=== PATIENT | female | born 1980 | race Caucasian/White ===

== ENCOUNTER 2017-07-02 10:58 | Observation (INO) | payer OTHER ==
[2017-07-02 11:48] LABS: BASOPHIL 0.2 % (0-2.0); EOSINOPHIL 0.3 % (0-4.5); MCH 27.7 pg (25.7-33.7); MCHC 33.4 g/dl (32.0-36.0); MEAN CELL VOLUME 83.1 fl (80-96); MEAN PLT VOLUME 9.7 fl (7.5-11.1); NEUTROPHILS 60.1 % (42.8-82.8); PLATELET COUNT 389 K/MM3 (134-434); RDW 12.6 % (11.6-15.6); WHITE BLOOD COUNT 13.3 K/mm3 (4.0-10.8)
[2017-07-02 11:49] LABS: PH,URINE 5.5 (4.5-8); URINE BILIRUBIN Negative (NEGATIVE); URINE BLOOD 3+ (NEGATIVE); URINE COLOR YELLOW; URINE GLUCOSE (UA) 3+ (NEGATIVE); URINE KETONE Negative (NEGATIVE); URINE LEUK ESTERASE 3+ (NEGATIVE); URINE NITRITE Negative (NEGATIVE); URINE PROTEIN Negative (NEGATIVE); URINE UROBILINOGEN 0.2 (0.2-1.0)
[2017-07-02 11:50] LABS: URINE APPEARANCE CLOUDY
[2017-07-02 12:05] LABS: URINE RBC 20-50 /hpf (0-3); URINE WBC 80-100 (3-5)
[2017-07-02 12:08] LABS: ALBUMIN 3.1 g/dl (3.5-5.0); ALK PHOS 84 U/L (32-92); ANION GAP 13 (8-16); BILIRUBIN,TOTAL 0.7 mg/dl (0.2-1.0); CALCIUM 9.5 mg/dl (8.4-10.2); CO2 20 mmol/L (22-28); CREATININE 0.9 mg/dl (0.6-1.3); SGOT/AST 16 U/L (10-42); SGPT/ALT 16 U/L (10-40); TOT PROT 7.9 g/dl (6.4-8.3)
[2017-07-02 12:10] LABS: GLUCOSE,RANDOM 450 mg/dl (74-106)
[2017-07-02] MEDS ORDERED: valACYclovir HCL 500 MG TABLET (FP) PO ONE (12:15)
--- NOTE | 2017-07-02 12:27 | PDOC ---
History of Present Illness - General Chief Complaint: Rash Stated Complaint: rash Time Seen by Provider: 07/02/17 11:39 - History of Present Illness Initial Comments: 07/02/17 12:22 37 F with h/o DM2 on metformin presents to ER with complaint of rash to her vagina. Pt states that it began several days ago. She was seen at another ER last week and told she had a yeast infection. She was started on fluconazole and DC'ed. However, since then, the rash has only gotten worse. She reports severe pain around her vagina, with clearish discharge. Pt states she has had yeast infections in the past but this does not feel the same. She denies F/C. Has had chlamydia in the past but no other known STDs. Denies any dysuria. Pt also states that she has been noncompliant with her metformin for several days because she left it at home and is visiting her father. SHe denies any CP/ SOB. Denies N/V/D/abdominal pain. Has not been checking her sugars regularly. Denies urinary frequency but endorses thirst for the past few days. Past History - Past Medical History Allergies/Adverse Reactions: Allergies Allergy/AdvReac Type Severity Reaction Status Date / Time No Known Allergies Allergy Verified 07/02/17 11:03 Home Medications: Ambulatory Orders Metformin HCl [Glucophage -] 500 mg PO DAILY 07/02/17 Diabetes: Yes - Suicide/Smoking/Psychosocial Hx Smoking History: Never smoked Hx Alcohol Use: Yes Drug/Substance Use Hx: No Substance Use Type: Alcohol Review of Systems - Review of Systems Comments:: 07/02/17 12:25 "GENERAL/CONSTITUTIONAL: No fever or chills. No weakness. HEAD, EYES, EARS, NOSE AND THROAT: No change in vision. No ear pain or discharge. No sore throat. CARDIOVASCULAR: No chest pain or shortness of breath. RESPIRATORY: No cough, wheezing, or hemoptysis. GASTROINTESTINAL: No nausea, vomiting, diarrhea or constipation. GENITOURINARY: +rash with discharge, No dysuria, frequency, or change in urination. MUSCULOSKELETAL: No joint or muscle swelling or pain. No neck or back pain. SKIN: No rash NEUROLOGIC: No headache, vertigo, loss of consciousness, or change in strength/ sensation. ENDOCRINE: No increased thirst. No abnormal weight change. HEMATOLOGIC/LYMPHATIC: No anemia, easy bleeding, or history of blood clots. ALLERGIC/IMMUNOLOGIC: No hives or skin allergy. " *Physical Exam - Vital Signs Last Vital Signs Temp Pulse Resp BP Pulse Ox 97 F L 106 H 16 111/72 100 07/02/17 10:59 07/02/17 11:48 07/02/17 10:59 07/02/17 11:48 07/02/17 10:59 - Physical Exam Comments: 07/02/17 12:25 "GENERAL: Awake, alert, and fully oriented, in no acute distress HEAD: No signs of trauma EYES: PERRLA, EOMI, sclera anicteric, conjunctiva clear ENT: Auricles normal inspection, hearing grossly normal, nares patent, oropharynx clear without exudates. Moist mucosa NECK: Nontender, no stepoffs, Normal ROM, supple, no lymphadenopathy, JVD, or masses LUNGS: Breath sounds equal, clear to auscultation bilaterally. No wheezes, and no crackles HEART: Regular rate and rhythm, normal S1 and S2, no murmurs, rubs or gallops ABDOMEN: Soft, nontender, normoactive bowel sounds. No guarding, no rebound. No masses : + Vesicular rash with clear discharge surrounding vagina, no purulence, + erythema EXTREMITIES: Normal range of motion, no edema. No clubbing or cyanosis. No cords, erythema, or tenderness NEUROLOGICAL: Cranial nerves II through XII intact. 5/5 strength and sensation in all extremities, Normal speech, normal gait SKIN: Warm, Dry, normal turgor, no rashes or lesions noted. " ED Treatment Course - LABORATORY CBC & Chemistry Diagram: 07/02/17 11:33 07/02/17 11:33 - ADDITIONAL ORDERS Additional order review: Laboratory Results 07/02/17 07/02/17 11:33 11:33 Sodium 131 L Potassium 4.0 Chloride 98 Carbon Dioxide 20 L Anion Gap 13 BUN 17 Creatinine 0.9 Creat Clearance w eGFR > 60 Random Glucose 450 H* Calcium 9.5 Total Bilirubin 0.7 AST 16 ALT 16 Alkaline Phosphatase 84 Total Protein 7.9 Albumin 3.1 L Urine Color Yellow Urine Appearance Cloudy Urine pH 5.5 Ur Specific [place] <= 1.005 Urine Protein Negative Urine Glucose (UA) 3+ H Urine Ketones Negative Urine Blood 3+ H Urine Nitrite Negative Urine Bilirubin Negative Urine Urobilinogen 0.2 Urine RBC 20-50 Urine WBC 80-100 Ur Epithelial Cells 3-5 07/02/17 11:33 RBC 5.00 MCV 83.1 MCHC 33.4 RDW 12.6 MPV 9.7 Neutrophils % 60.1 Lymphocytes % 30.1 Monocytes % 9.3 Eosinophils % 0.3 Basophils % 0.2 - RADIOLOGY Radiology Studies Ordered: Category Date Time Status CHEST X-RAY PORTABLE* [RAD] Stat Radiology 07/02/17 11:57 Ordered Medical Decision Making - Medical Decision Making 07/02/17 12:29 37 F with h/o DM presenting with rash to vagina, incidentally found to have fingerstick >400. Pt likely has genital herpes given painful vesicular rash with clear discharge. However, pt is at risk for GC/chlamydia as well given prior h/o STD. Regarding pt's elevated fingerstick, will evaluate for DKA and HHS. Pt will likely need to be started on insulin regimen. - Labs, UA, GC/CT, HSV cultures - Acetone, VBG to r/o DKA - Acyclovir for HSV infection - Ceftriaxone and Doxy for GC/CT coverage 07/02/17 14:31 Labs with only trace serum ketones, Anion Gap 13. Pt given insulin 5u IV, with 2L NS. Will admit for further management of diabetes and for tx of genital infection. Case discussed in detail with admitting physician including history, physical exam and ancillary studies. Admitting physician has assumed care for the patient and will follow all pending diagnostics and complete the evaluation and treatment. *DC/Admit/Observation/Transfer Diagnosis at time of Disposition: Hyperglycemia, Genital herpes simplex - Discharge Dispostion Condition at time of disposition: Stable Admit: Yes
[2017-07-02] MEDS ORDERED: DOXYCYCLINE HYCLATE 100 MG CAPSULE PO ONE ×2 (12:28→12:46)
[2017-07-02] MEDS ORDERED: valACYclovir HCL 500 MG TABLET (FP) ONE (12:46)
[2017-07-02 13:25] LABS: VENOUS BLOOD GAS HCO3 22.4 meq/L (22-26)
[2017-07-02 13:26] LABS: VENOUS PH 7.37 (7.35-7.45)
[2017-07-02] MEDS ORDERED: INSULIN REGULAR HUMAN 100 UNITS/ML *VIAL IVPUSH ONE (13:34)
[2017-07-02] MEDS ORDERED: POTASSIUM CHLORIDE TABS 20 MEQ TABLET.ER (FP) PO ONE ×2 (13:34→13:44)
[2017-07-02] MEDS ORDERED: SODIUM CHLORIDE 1,000 ML IV STA ×2 (13:34→15:02)
[2017-07-02] MEDS ORDERED: INSULIN REGULAR HUMAN 100 UNITS/ML *VIAL ONE (13:45)
[2017-07-02 13:59] LABS: HIV 1 & 2 AB NEGATIVE; HIV 1 AGp24 NEGATIVE
[2017-07-02] MEDS ORDERED: HEMOQUE TEST 1 EACH EACH ONE (14:32)
[2017-07-02] MEDS ORDERED: SODIUM CHLORIDE 1,000 ML with POTASSIUM CHLORIDE 20 MEQ IVPB STA (14:37)
[2017-07-02] MEDS ORDERED: MAGNESIUM SULF 50% (8.12 MEQ/2 ML-1 GM VIAL) IVPB ONE (15:15)
[2017-07-02 16:12] LABS: ALK PHOS 82 U/L (32-92); ANION GAP 12 (8-16); BILIRUBIN,TOTAL 0.6 mg/dl (0.2-1.0); CALCIUM 9.3 mg/dl (8.4-10.2); CO2 22 mmol/L (22-28); CREATININE 0.7 mg/dl (0.6-1.3); GLUCOSE,RANDOM 242 mg/dl (74-106); SGOT/AST 17 U/L (10-42); SGPT/ALT 17 U/L (10-40); TOT PROT 7.7 g/dl (6.4-8.3)
[2017-07-02] MEDS ORDERED: INSULIN SLIDING SCALE (NOVOLOG) 1 VIAL SQ SCH (17:00)
[2017-07-02] MEDS ORDERED: oxyCODONE HCL 5 MG TABLET PO ONE (17:01)
[2017-07-02 18:22] VITALS: BMI 36.3
[2017-07-02 20:12] LABS: ANION GAP 8 (8-16); CALCIUM 8.5 mg/dl (8.4-10.2); CO2 23 mmol/L (22-28); CREATININE 0.6 mg/dl (0.6-1.3); GLUCOSE,RANDOM 284 mg/dl (74-106)
[2017-07-03] MEDS: INSULIN SLIDING SCALE (NOVOLOG) 1 VIAL SQ SCH ×6 (02:00→22:00)
--- NOTE | 2017-07-03 07:11 | HP ---
CHIEF COMPLAINT: vaginal rash PCP: Dr Mccain (formerly [facility]) HISTORY OF PRESENT ILLNESS: patient is a 37 y/o female with a past medical history of NIDDM. She reports non compliance with prescribed medication. Patient reports a burning and itching sensation to her vagina since Sunday, . She was evaluated in a emergency department at [place], [place] and was given 1 dose of diflucan and started on monistat 7. Patient reports compliance with monistat, however, the burning rash to the vagina worsened and she sought evaluation in the emergency department. Patient does report she is sexually active with 1 male partner for the past 2 months. ER course was notable for: (1) wbc 13.3 (2) serum glucose 450 (3) Recent Travel: none PAST MEDICAL HISTORY: niddm PAST SURGICAL HISTORY: none Social History: employed at a [employer] agency Smoking: none Alcohol:none Drugs: none Family History: non contributory to this admission Allergies No Known Allergies Allergy (Verified 07/02/17 11:03) HOME MEDICATIONS: Home Medications Medication Instructions Recorded Metformin HCl [Glucophage -] 500 mg PO DAILY 07/02/17 REVIEW OF SYSTEMS CONSTITUTIONAL: Absent: fever, chills, diaphoresis, generalized weakness, malaise, loss of appetite, weight change HEENT: Absent: rhinorrhea, nasal congestion, throat pain, throat swelling, difficulty swallowing, mouth swelling, ear pain, eye pain, visual changes CARDIOVASCULAR: Absent: chest pain, syncope, palpitations, irregular heart rate, lightheadedness , peripheral edema RESPIRATORY: Absent: cough, shortness of breath, dyspnea with exertion, orthopnea, wheezing, stridor, hemoptysis GASTROINTESTINAL: Absent: abdominal pain, abdominal distension, nausea, vomiting, diarrhea, constipation, melena, hematochezia GENITOURINARY: present: genital pain Absent: dysuria, frequency, urgency, hesitancy, hematuria, flank pain MUSCULOSKELETAL: Absent: myalgia, arthralgia, joint swelling, back pain, neck pain SKIN: Absent: rash, itching, pallor HEMATOLOGIC/IMMUNOLOGIC: Absent: easy bleeding, easy bruising, lymphadenopathy, frequent infections ENDOCRINE: Absent: unexplained weight gain, unexplained weight loss, heat intolerance, cold intolerance NEUROLOGIC: Absent: headache, focal weakness or paresthesias, dizziness, unsteady gait, seizure, mental status changes, bladder or bowel incontinence PSYCHIATRIC: Absent: anxiety, depression, suicidal or homicidal ideation, hallucinations. PHYSICAL EXAMINATION Vital Signs - 24 hr 07/02/17 07/02/17 07/02/17 15:50 17:16 21:33 Temperature 99.5 F 98.5 F 99.4 F Pulse Rate 92 H 98 H Pulse Rate [ 99 H Left] Respiratory 18 18 18 Rate Blood Pressure 114/82 111/64 Blood Pressure 129/93 [Left Arm] O2 Sat by Pulse 99 98 96 Oximetry (%) 07/03/17 07/03/17 01:33 06:00 Temperature 98.0 F Pulse Rate 91 H Pulse Rate [ Left] Respiratory 18 18 Rate Blood Pressure 137/82 Blood Pressure [Left Arm] O2 Sat by Pulse 96 97 Oximetry (%) GENERAL: Awake, alert, and fully oriented, in no acute distress. HEAD: Normal with no signs of trauma. EYES: Pupils equal, round and reactive to light, extraocular movements intact, sclera anicteric, conjunctiva clear. No lid lag. EARS, NOSE, THROAT: Ears normal, nares patent, oropharynx clear without exudates. Moist mucous membranes. NECK: Normal range of motion, supple without lymphadenopathy, JVD, or masses. LUNGS: Breath sounds equal, clear to auscultation bilaterally. No wheezes, and no crackles. No accessory muscle use. HEART: Regular rate and rhythm, normal S1 and S2 without murmur, rub or gallop. ABDOMEN: Soft, nontender, not distended, normoactive bowel sounds, no guarding, no rebound, no masses. No hepatomegaly or splenomegaly. : vesicular rash with clear discharge to labia majora bilaterally MUSCULOSKELETAL: Normal range of motion at all joints. No bony deformities or tenderness. No CVA tenderness. UPPER EXTREMITIES: 2+ pulses, warm, well-perfused. No cyanosis. No clubbing. No peripheral edema. RIGHT HAND: abscess to nail bed, no lymphangitis LOWER EXTREMITIES: 2+ pulses, warm, well-perfused. No calf tenderness. No peripheral edema. NEUROLOGICAL: Cranial nerves II-XII intact. Normal speech. Normal gait. PSYCHIATRIC: Cooperative. Good eye contact. Appropriate mood and affect. SKIN: Warm, dry, normal turgor, no rashes or lesions noted, normal capillary refill. Laboratory Results - last 24 hr 09/25/17 09/25/17 09/25/17 16:51 19:30 21:43 Sodium 135 L Potassium 3.9 Chloride 104 Carbon Dioxide 23 Anion Gap 8 BUN 14 Creatinine 0.6 POC Glucometer 255 262 Random Glucose 284 H Calcium 8.5 07/03/17 07/03/17 01:47 06:21 Sodium Potassium Chloride Carbon Dioxide Anion Gap BUN Creatinine POC Glucometer 241 203 Random Glucose Calcium ASSESSMENT/PLAN: F/E/N - diabetec diet - replete lytes prn ppx - oob - pepcid - scd dispo: requires observation admission Problem List - Problem (1) Genital herpes Assessment/Plan: - pending vaginal herpes culture, physical exam consistent with herpes simplex II, will start valtrex 1 gm BID - pt has a past medical history of chlaymdia in the past, patient was empirically treated with rocephin and doxy in the ED, pending chlaymdia and gonnorhea culture - HIV oraquick negative Code(s): A60.00 - HERPESVIRAL INFECTION OF UROGENITAL SYSTEM, UNSPECIFIED Qualifiers: Herpes simplex infection site: vulvovaginitis Qualified Code(s): A60.04 - Herpesviral vulvovaginitis (2) Hyperglycemia Assessment/Plan: - start fingersticks achs with regular insulin coverage Code(s): R73.9 - HYPERGLYCEMIA, UNSPECIFIED (3) Diabetes Assessment/Plan: - pending hemoglobin a1c - continue fingersticks achs with regular insulin coverage Code(s): E11.9 - TYPE 2 DIABETES MELLITUS WITHOUT COMPLICATIONS (4) Paronychia of right middle finger Assessment/Plan: - incision and drainage completed, start bactroban and keflex Code(s): L03.011 - CELLULITIS OF RIGHT FINGER Visit type - Emergency Visit Emergency Visit: Yes ED Registration Date: 07/02/17 Care time: The patient presented to the Emergency Department on the above date and was hospitalized for further evaluation of their emergent condition. - New Patient This patient is new to me today: Yes Date on this admission: 07/03/17 - Critical Care Critical Care patient: No
[2017-07-03 07:50] LABS: BASOPHIL 0.8 % (0-2.0); EOSINOPHIL 0.8 % (0-4.5); MCH 27.5 pg (25.7-33.7); MCHC 33.1 g/dl (32.0-36.0); MEAN CELL VOLUME 82.9 fl (80-96); MEAN PLT VOLUME 8.5 fl (7.5-11.1); NEUTROPHILS 60.9 % (42.8-82.8); PLATELET COUNT 302 K/MM3 (134-434); RDW 12.5 % (11.6-15.6); WHITE BLOOD COUNT 11.3 K/mm3 (4.0-10.8)
[2017-07-03] MEDS: MUPIROCIN 2% TOPICAL OINTMENT 22 GM TUBE TP SCH ×3 (09:27→21:34)
[2017-07-03] MEDS: FAMOTIDINE 20 MG TABLET PO SCH ×2 (09:28→21:34)
[2017-07-03] MEDS: valACYclovir HCL 500 MG TABLET (FP) PO SCH ×2 (09:28→21:34)
[2017-07-03] MEDS ORDERED: valACYclovir HCL 1000 MG TABLET PO SCH (10:00)
[2017-07-03] MEDS ORDERED: INSULIN (NOVOLOG) ASPART 100 UNITS/ML 10ML VIAL ONE ×3 (12:32→21:45)
[2017-07-03 13:34] LABS: ANION GAP 5 (8-16); CALCIUM 8.3 mg/dl (8.4-10.2); CO2 23 mmol/L (22-28); CREATININE 0.6 mg/dl (0.6-1.3); GLUCOSE,RANDOM 202 mg/dl (74-106); MAGNESIUM 1.8 mg/dL (1.8-2.4); PHOSPHOROUS 4.1 mg/dl (2.5-4.6)
--- NOTE | 2017-07-03 13:39 | PROC ---
Incision and Drainage Indication/Location: paronychia Risks and Benefits Explained: Yes Betadine cleansed: Yes Blade Size: #18 gauge needle Drainage: purulent drainage Irrigated with Normal Saline: Yes Plain packing: No Sterile Dressing Applied: Yes - Remarks Remarks: bactroban and cling applied
[2017-07-03] MEDS: LACTOBACILLUS ACIDOPHILUS 1 EACH TAB (FP) PO SCH (14:02)
[2017-07-03 17:07] LABS: THYROID STIMULATING HORMONE 1.08 uIU/ml (0.358-3.74)
[2017-07-03] MEDS: CEPHALEXIN MONOHYDRATE 500 MG CAPSULE (UD) PO SCH ×2 (17:11→23:32)
[2017-07-04] MEDS: MUPIROCIN 2% TOPICAL OINTMENT 22 GM TUBE TP SCH ×3 (06:00→22:08)
[2017-07-04] MEDS: CEPHALEXIN MONOHYDRATE 500 MG CAPSULE (UD) PO SCH ×4 (06:00→23:59)
[2017-07-04] MEDS: INSULIN SLIDING SCALE (NOVOLOG) 1 VIAL SQ SCH ×2 (07:02→11:00)
[2017-07-04] MEDS ORDERED: INSULIN (NOVOLOG) ASPART 100 UNITS/ML 10ML VIAL ONE ×2 (07:09→12:01)
[2017-07-04] MEDS: FAMOTIDINE 20 MG TABLET PO SCH ×2 (09:28→22:08)
[2017-07-04] MEDS: valACYclovir HCL 500 MG TABLET (FP) PO SCH ×2 (09:28→22:08)
[2017-07-04] MEDS: LACTOBACILLUS ACIDOPHILUS 1 EACH TAB (FP) PO SCH (09:29)
--- NOTE | 2017-07-04 09:58 | PN ---
Physical Exam: SUBJECTIVE: Patient seen and examined, reports feeling much better, denies any tactile fevers OBJECTIVE: patient is a 37 y/o female with a past medical history of DM, was admitted from the emergency department for hyperglycemia and herpes simplex II Vital Signs Period Temp Pulse Resp BP Sys/Phillips Pulse Ox Last 24 Hr 98.4 F-98.8 F 77-91 18-18 115-150/70-84 93-96 GENERAL: The patient is awake, alert, and fully oriented, in no acute distress. HEAD: Normal with no signs of trauma. EYES: PERRL, extraocular movements intact, sclera anicteric, conjunctiva clear. No ptosis. ENT: Ears normal, nares patent, oropharynx clear without exudates, moist mucous membranes. NECK: Trachea midline, full range of motion, supple. LUNGS: Breath sounds equal, clear to auscultation bilaterally, no wheezes, no crackles, no accessory muscle use. HEART: Regular rate and rhythm, S1, S2 without murmur, rub or gallop. ABDOMEN: Soft, nontender, nondistended, normoactive bowel sounds, no guarding, no rebound, no hepatosplenomegaly, no masses. : vesicular rash to labia EXTREMITIES: 2+ pulses, warm, well-perfused, no edema. right 3rd digit, slight erythema noted to nail bed NEUROLOGICAL: Cranial nerves II through XII grossly intact. Normal speech, gait not observed. PSYCH: Normal mood, normal affect. SKIN: Warm, dry, normal turgor, no rashes or lesions noted Laboratory Results - last 24 hr 07/03/17 07/03/17 07/03/17 08:45 08:45 08:45 Sodium 135 L Potassium 3.9 Chloride 107 Carbon Dioxide 23 Anion Gap 5 L BUN 12 Creatinine 0.6 POC Glucometer Random Glucose 202 H D Hemoglobin A1c % 11.9 H Calcium 8.3 L Phosphorus 4.1 Magnesium 1.8 TSH 1.08 Free T4 HIV 1&2 Antibody Screen Cancelled HIV P24 Antigen Cancelled 07/03/17 07/03/17 07/03/17 08:45 12:20 17:01 Sodium Potassium Chloride Carbon Dioxide Anion Gap BUN Creatinine POC Glucometer 245 260 Random Glucose Hemoglobin A1c % Calcium Phosphorus Magnesium TSH Free T4 1.33 HIV 1&2 Antibody Screen HIV P24 Antigen 07/03/17 07/04/17 21:32 06:07 Sodium Potassium Chloride Carbon Dioxide Anion Gap BUN Creatinine POC Glucometer 285 168 Random Glucose Hemoglobin A1c % Calcium Phosphorus Magnesium TSH Free T4 HIV 1&2 Antibody Screen HIV P24 Antigen Active Medications Generic Name Dose Route Start Last Admin Trade Name Brady PRN Reason Stop Dose Admin Cephalexin HCl 500 mg 07/03/17 18:00 07/04/17 06:00 Keflex - PO 500 mg Q6HPO DAQUAN Administration Famotidine 20 mg 07/03/17 10:00 07/04/17 09:28 Pepcid - PO 20 mg BID DAQUAN Administration Insulin Aspart 1 vial 07/03/17 11:00 07/04/17 07:02 Novolog Vial Sliding Scale - SQ 2 unit ACHS DAQUAN Administration Protocol Insulin Detemir 10 units 07/04/17 09:56 Levemir Vial SQ 07/04/17 09:57 ONCE ONE Lactobacillus Acidophilus 1 tab 07/03/17 13:45 07/04/17 09:29 Bacid - PO 1 tab DAILY DAQUAN Administration Mupirocin 1 applic 07/03/17 08:30 07/04/17 06:00 Bactroban 2% Ointment - TP 1 applic TID DAQUAN Administration Oxycodone/Acetaminophen 1 combo 07/03/17 08:24 07/04/17 09:28 Percocet 5/325 - PO 1 combo Q4H PRN Administration PAIN Valacyclovir HCl 1,000 mg 07/03/17 10:00 07/04/17 09:28 Valtrex - PO 1,000 mg BID DAQUAN Administration ASSESSMENT/PLAN: 1) endo IDDM - hemoglobin a1c 11.9, elevated fingersticks noted, start levermir 10 units, continue fingersticks achs with regular insulin coverage - patient will require home insulin - appreciate endo input 2) ID genital herpes - continue acylovir - treated empirically in ED with rocephin and doxy - pending chlaymdia, gonnorhea, and herpes simplex II culture 3) paronychia of right middle finger - I&D, 07/03/17, continue bactroban and keflex - erythema resolving to digit, patient is able to flex and extend the digit with out any difficulty. F/E/N - diabetec diet - replete lytes prn ppx - oob - pepcid - scd dispo: requires observation admission Problem List - Problems (1) Genital herpes Code(s): A60.00 - HERPESVIRAL INFECTION OF UROGENITAL SYSTEM, UNSPECIFIED Qualifiers: Herpes simplex infection site: vulvovaginitis Qualified Code(s): A60.04 - Herpesviral vulvovaginitis (2) Hyperglycemia Code(s): R73.9 - HYPERGLYCEMIA, UNSPECIFIED (3) Diabetes Code(s): E11.9 - TYPE 2 DIABETES MELLITUS WITHOUT COMPLICATIONS (4) Paronychia of right middle finger Code(s): L03.011 - CELLULITIS OF RIGHT FINGER
[2017-07-04] MEDS ORDERED: INSULIN DETEMIR 100 UNITS/ML MDV SQ ONE ×2 (10:15→10:19)
[2017-07-04] MEDS: ENOXAPARIN NA (PORCINE) 40 MG/0.4 ML DISP.SYRIN SQ SCH (13:45)
[2017-07-04] MEDS: metFORMIN HCL 500 MG TABLET (FP) PO SCH (16:21)
[2017-07-04] MEDS ORDERED: INSULIN (NOVOLOG MIX 70/30) 100 UNITS/ML MDV SQ SCH ×2 (16:30)
[2017-07-04] MEDS: sitaGLIPtin PHOSPHATE 50 MG TABLET PO SCH (16:32)
--- NOTE | 2017-07-04 22:10 | CONSULT ---
Consult Consult Specialty:: endocrine/diabetes mellitus Referred by:: maria luisa perez NP Reason for Consultation:: uncontrolled dm - History of Present Illness Chief Complaint: high sugars and yeast infection History of Present Illness: 37 y female,with pmh dm,non compliant with management,has recurrent vaginal infection,since admission bs have been elevated,she had polyuria polydipsia, blurred vision,denies fever cough, or vomiting - History Source History Provided By: Patient - Past Medical History ...: No - Alcohol/Substance Use Hx Alcohol Use: Yes - Smoking History Smoking history: Never smoked Home Medications - Allergies Allergies/Adverse Reactions: Allergies Allergy/AdvReac Type Severity Reaction Status Date / Time No Known Allergies Allergy Verified 07/02/17 11:03 - Home Medications Home Medications: Ambulatory Orders Metformin HCl [Glucophage -] 500 mg PO DAILY 07/02/17 Review of Systems - Review of Systems Constitutional: reports: Lethargy, Weakness Eyes: reports: Blurred Vision HENT: reports: No Symptoms Neck: reports: No Symptoms Cardiovascular: reports: No Symptoms Respiratory: reports: No Symptoms Gastrointestinal: reports: Bloating, Constipation Genitourinary: reports: Frequency, Urgency Breasts: reports: No Symptoms Reported Musculoskeletal: reports: Muscle Weakness Neurological: reports: No Symptoms Endocrine: reports: No Symptoms Physical Exam Vital Signs: Vital Signs Temperature 98.1 F 07/04/17 14:13 Pulse Rate 79 07/04/17 14:13 Respiratory Rate 16 07/04/17 14:13 Blood Pressure 129/77 07/04/17 14:13 O2 Sat by Pulse Oximetry (%) 97 07/04/17 14:13 Constitutional: Yes: Calm Eyes: Yes: EOM Intact HENT: Yes: Normocephalic Neck: Yes: Trachea Midline Cardiovascular: Yes: Regular Rate and Rhythm Respiratory: Yes: CTA Bilaterally Gastrointestinal: Yes: Normal Bowel Sounds ...Rectal Exam: Yes: Deferred Renal/: Yes: WNL Breast(s): Yes: WNL Musculoskeletal: Yes: WNL Extremities: Yes: WNL Edema: No Wound/Incision: Yes: Dressing Dry and Intact Neurological: Yes: WNL Labs: CBC, BMP 07/03/17 07:00 07/03/17 08:45 Problem List - Problems (1) Diabetes Code(s): E11.9 - TYPE 2 DIABETES MELLITUS WITHOUT COMPLICATIONS (2) Hyperglycemia Code(s): R73.9 - HYPERGLYCEMIA, UNSPECIFIED (3) Paronychia of right middle finger Code(s): L03.011 - CELLULITIS OF RIGHT FINGER (4) Controlled diabetes mellitus type 2 with complications Code(s): E11.8 - TYPE 2 DIABETES MELLITUS WITH UNSPECIFIED COMPLICATIONS Assessment/Plan Current Active Problems Controlled diabetes mellitus type 2 with complications (Acute) Diabetes (Acute) Genital herpes (Acute) Hyperglycemia (Acute) Paronychia of right middle finger (Acute) Laboratory Results - last 24 hr 07/02/17 07/04/17 07/04/17 12:35 06:07 11:38 POC Glucometer 168 292 C.trachomatis Ampl DNA Negative N. gonorrhoeae (AZAM) Negative Laboratory Tests 07/03/17 07/03/17 07/03/17 07:00 08:45 08:45 WBC 11.3 H RBC 4.24 Hgb 11.6 D Hct 35.2 D MCV 82.9 MCH 27.5 MCHC 33.1 RDW 12.5 Plt Count 302 D MPV 8.5 D Sodium 135 L Potassium 3.9 Chloride 107 Carbon Dioxide 23 Anion Gap 5 L BUN 12 Creatinine 0.6 POC Glucometer Random Glucose 202 H D Hemoglobin A1c % 11.9 H TSH 1.08 07/03/17 12:20 WBC RBC Hgb Hct MCV MCH MCHC RDW Plt Count MPV Sodium Potassium Chloride Carbon Dioxide Anion Gap BUN Creatinine POC Glucometer 245 Random Glucose Hemoglobin A1c % TSH plan: bgm novolog scale novolog 70/30 10 units bid hold if sugar below 100mg/dl metformin 1000mg bid januvia 50 mg bid nutrition consult
[2017-07-05] MEDS: sitaGLIPtin PHOSPHATE 50 MG TABLET PO SCH (06:34)
[2017-07-05] MEDS: CEPHALEXIN MONOHYDRATE 500 MG CAPSULE (UD) PO SCH (06:34)
[2017-07-05] MEDS: metFORMIN HCL 500 MG TABLET (FP) PO SCH (06:34)
[2017-07-05] MEDS: MUPIROCIN 2% TOPICAL OINTMENT 22 GM TUBE TP SCH (06:43)
[2017-07-05] MEDS ORDERED: INSULIN SLIDING SCALE (NOVOLOG) 1 VIAL SQ SCH (07:00)
[2017-07-05] MEDS ORDERED: INSULIN (NOVOLOG MIX 70/30) 100 UNITS/ML MDV SQ SCH ×3 (07:00→11:00)
[2017-07-05] MEDS: valACYclovir HCL 500 MG TABLET (FP) PO SCH (09:35)
[2017-07-05] MEDS: ENOXAPARIN NA (PORCINE) 40 MG/0.4 ML DISP.SYRIN SQ SCH (09:37)
[2017-07-05] MEDS: FAMOTIDINE 20 MG TABLET PO SCH (09:37)
[2017-07-05] MEDS: LACTOBACILLUS ACIDOPHILUS 1 EACH TAB (FP) PO SCH (09:38)
[2017-07-05 09:40] VITALS: BP 129/86; PULSE 87; TEMP 98.7
--- NOTE | 2017-07-05 09:41 | DS ---
Physical Exam: SUBJECTIVE: Patient seen and examined, reports feeling better, reports and improvement of pain OBJECTIVE: patient is a 37 y/o female with a past medical history of NIDDM. She reports non compliance with prescribed medication. Patient reports a burning and itching sensation to her vagina since 06/27/17. She was evaluated in a emergency department at [place], [place] and was given 1 dose of diflucan and started on monistat 7. Patient reports compliance with monistat, however, the burning rash to the vagina worsened and she sought evaluation in the emergency department. Patient does report she is sexually active with 1 male partner for the past 2 months. ER course was notable for: (1) wbc 13.3 (2) serum glucose 450 Vital Signs Period Temp Pulse Resp BP Sys/Phillips Pulse Ox Last 24 Hr 98.1 F-98.9 F 76-91 16-18 129-144/76-86 96-97 PHYSICAL EXAM GENERAL: The patient is awake, alert, and fully oriented, in no acute distress. HEAD: Normal with no signs of trauma. EYES: PERRL, extraocular movements intact, sclera anicteric, conjunctiva clear. No ptosis. ENT: Ears normal, nares patent, oropharynx clear without exudates, moist mucous membranes. NECK: Trachea midline, full range of motion, supple. LUNGS: Breath sounds equal, clear to auscultation bilaterally, no wheezes, no crackles, no accessory muscle use. HEART: Regular rate and rhythm, S1, S2 without murmur, rub or gallop. ABDOMEN: Soft, nontender, nondistended, normoactive bowel sounds, no guarding, no rebound, no hepatosplenomegaly, no masses. : vesicular rash to labia EXTREMITIES: 2+ pulses, warm, well-perfused, no edema. right 3rd digit, slight erythema noted to nail bed NEUROLOGICAL: Cranial nerves II through XII grossly intact. Normal speech, gait not observed. PSYCH: Normal mood, normal affect. SKIN: Warm, dry, normal turgor, no rashes or lesions noted LABS Laboratory Results - last 24 hr 07/04/17 07/04/17 07/05/17 11:38 22:19 06:33 POC Glucometer 292 148 138 CBC WBC 11.3 K/mm3 (4.0-10.8) H 07/03/17 07:00 RBC 4.24 M/mm3 (3.60-5.2) 07/03/17 07:00 Hgb 11.6 GM/dl (10.7-15.3) D 07/03/17 07:00 Hct 35.2 % (32.4-45.2) D 07/03/17 07:00 MCV 82.9 fl (80-96) 07/03/17 07:00 MCH 27.5 pg (25.7-33.7) 07/03/17 07:00 MCHC 33.1 g/dl (32.0-36.0) 07/03/17 07:00 RDW 12.5 % (11.6-15.6) 07/03/17 07:00 Plt Count 302 K/MM3 (134-434) D 07/03/17 07:00 MPV 8.5 fl (7.5-11.1) D 07/03/17 07:00 Neutrophils % 60.9 % (42.8-82.8) 07/03/17 07:00 Lymphocytes % 30.8 % (8-40) 07/03/17 07:00 Monocytes % 6.7 % (3.8-10.2) 07/03/17 07:00 Eosinophils % 0.8 % (0-4.5) D 07/03/17 07:00 Basophils % 0.8 % (0-2.0) D 07/03/17 07:00 CMP Sodium 135 mmol/L (136-145) L 07/03/17 08:45 Potassium 3.9 mmol/L (3.5-5.1) 07/03/17 08:45 Chloride 107 mmol/L (98-107) 07/03/17 08:45 Carbon Dioxide 23 mmol/L (22-28) 07/03/17 08:45 Anion Gap 5 (8-16) L 07/03/17 08:45 BUN 12 mg/dl (7-18) 07/03/17 08:45 Creatinine 0.6 mg/dl (0.6-1.3) 07/03/17 08:45 Creat Clearance w eGFR > 60 (>60) 07/02/17 15:00 POC Glucometer 138 UNITS (()) 07/05/17 06:33 Random Glucose 202 mg/dl (74-106) H D 07/03/17 08:45 Hemoglobin A1c % 11.9 % (4.8-6.0) H 07/03/17 08:45 Calcium 8.3 mg/dl (8.4-10.2) L 07/03/17 08:45 Phosphorus 4.1 mg/dl (2.5-4.6) 07/03/17 08:45 Magnesium 1.8 mg/dL (1.8-2.4) 07/03/17 08:45 Total Bilirubin 0.6 mg/dl (0.2-1.0) 07/02/17 15:00 AST 17 U/L (10-42) 07/02/17 15:00 ALT 17 U/L (10-40) 07/02/17 15:00 Alkaline Phosphatase 82 U/L (32-92) 07/02/17 15:00 Total Protein 7.7 g/dl (6.4-8.3) 07/02/17 15:00 Albumin 3.0 g/dl (3.5-5.0) L 07/02/17 15:00 TSH 1.08 uIU/ml (0.358-3.74) 07/03/17 08:45 Free T4 1.33 ng/dl (0.76-1.46) 07/03/17 08:45 HOSPITAL COURSE: * patient was admitted from the emergency department for hyperglycemia, hemoglobin a1c 11.9, elevated fingersticks noted, patient was started on levermir 10 units, with fingersticks achs with regular insulin coverage, she was transitioned to metformin with januvua - patient will require home insulin - appreciate endo input 2) ID genital herpes - continue acylovir - treated empirically in ED with rocephin and doxy - pending chlaymdia, gonnorhea, and herpes simplex II culture 3) paronychia of right middle finger - I&D, 07/03/17, continue bactroban and keflex - erythema resolving to digit, patient is able to flex and extend the digit with out any difficulty. Date of Admission:07/02/17 Date of Discharge: 07/05/17 Minutes to complete discharge: 45 Discharge Summary Reason For Visit: GLYCEMIA Current Active Problems Controlled diabetes mellitus type 2 with complications (Acute) Diabetes (Acute) Genital herpes (Acute) Hyperglycemia (Acute) Paronychia of right middle finger (Acute) Condition: Stable - Instructions Diet, Activity, Other Instructions: resume diabetic diet continue taking your fingersticks before meals and at bedtime, please keep a log of your fingersticks continue your regular insulin sliding scale REGULAR INSULIN SLIDING SCALE 201-250 give 2 units 251-300 give 4 units 301-350 give 5 units 351-400 give 7 units greater than 400 give 10 units continue humalog 70/30 twice a day, hold humalog 70/30 if your fingerstick is below 100 continue valtrex and keflex for the next 7 days please follow up with Dr Kennedy within 1 week if any new or persistent symptoms develop please return to the emergency department Referrals: Hadley Rivero MD [Staff Physician] - Jose Shannon MD [Staff Physician] - Disposition: VNS/HOME HEALTH CARE - Home Medications Comprehensive Discharge Medication List: Ambulatory Orders Alcohol Antiseptic Pads [Caretouch Alcohol Prep Pad] 1 each TP ACHS #120 med..pad 07/05/17 Cephalexin Monohydrate [Keflex -] 500 mg PO Q6HPO #28 cap 07/05/17 Famotidine [Pepcid -] 20 mg PO BID tablet 07/05/17 Insulin (Novolog 70/30) [Novolog Mix 70/30 Flexpen -] 10 units SQ BIDAC #1 pen 07/05/17 Insulin Aspart [Novolog Flexpen] 1 unit SQ ACHS #1 insuln.pen 07/05/17 Lactobacillus Acidophilus [Bacid -] 1 tab PO DAILY tab 07/05/17 Lancets 1 each ACHS #120 each 07/05/17 Metformin HCl [Glucophage -] 1,000 mg PO BID@0700,1630 #60 tablet 07/05/17 Miscellaneous Medical Supply [Glucometer Device] 1 each .ROUTE ACHS #1 kit 07/05 Miscellaneous Medical Supply [Glucometer Test Strips #100] 1 each .ROUTE ACHS # 1 box 07/05/17 Mupirocin Ointment [Bactroban 2% Ointment -] 1 applic TP TID #1 applic 07/05/17 Oxycodone HCl/Acetaminophen [Percocet 5-325 mg Tablet] 1 combo PO Q4H PRN #18 tablet MDD 6 07/05/17 Pen Needle, Diabetic [Insulin Pen Needle] 1 each ACHS #100 dis.needle Sitagliptin Phosphate [Januvia -] 50 mg PO BIDI #60 tablet 07/05/17 Valacyclovir HCl [Valtrex -] 1,000 mg PO BID #28 tablet 07/05/17 Problem List - Problems (1) Genital herpes Code(s): A60.00 - HERPESVIRAL INFECTION OF UROGENITAL SYSTEM, UNSPECIFIED Qualifiers: Herpes simplex infection site: vulvovaginitis Qualified Code(s): A60.04 - Herpesviral vulvovaginitis (2) Hyperglycemia Code(s): R73.9 - HYPERGLYCEMIA, UNSPECIFIED (3) Diabetes Code(s): E11.9 - TYPE 2 DIABETES MELLITUS WITHOUT COMPLICATIONS (4) Paronychia of right middle finger Code(s): L03.011 - CELLULITIS OF RIGHT FINGER (5) Uncontrolled diabetes mellitus Code(s): E11.65 - TYPE 2 DIABETES MELLITUS WITH HYPERGLYCEMIA
== END 2017-07-05 11:45 | disposition home health service (06) ==
LOC: FER 10:58 → INTOOBSV 15:41 → FM/S 15:41
PROVIDERS: ADMIT Internal Medicine; ATTEND Nurse Practitioner Family
PROC: 0H9FXZZ Drainage of Right Hand Skin, External Approach (ICD-10-PCS; principal; 2017-07-02)
PROC: 3E033VG Introduction of Insulin into Peripheral Vein, Percutaneous Approach (ICD-10-PCS; 2017-07-02)
PROC: 3E033GC Introduction of Other Therapeutic Substance into Peripheral Vein, Percutaneous Approach (ICD-10-PCS; 2017-07-02)
PROC: 3E013VG Introduction of Insulin into Subcutaneous Tissue, Percutaneous Approach (ICD-10-PCS; 2017-07-02)
PROC: 3E013GC Introduction of Other Therapeutic Substance into Subcutaneous Tissue, Percutaneous Approach (ICD-10-PCS; 2017-07-02)
PROC: 3E0337Z Introduction of Electrolytic and Water Balance Substance into Peripheral Vein, Percutaneous Approach (ICD-10-PCS; 2017-07-02)
PROC: 3E023GC Introduction of Other Therapeutic Substance into Muscle, Percutaneous Approach (ICD-10-PCS; 2017-07-02)
DX: E11.65 Type 2 diabetes mellitus with hyperglycemia (principal); Z79.84 Long term (current) use of oral hypoglycemic drugs; A60.00 Herpesviral infection of urogenital system, unspecified; Z91.14 Patient's other noncompliance with medication regimen; L03.011 Cellulitis of right finger; Z79.4 Long term (current) use of insulin
CPT/HCPCS: 36415; 71010-TC; 80048; 80053; 81003; 81015; 82009; 82803; 83036; 83735; 84100; 84439; 84443; 84703; 85025; 85027; 87255; 87389; 87491; 87591; 99283-25; G0378

== ENCOUNTER 2022-07-30 11:23 | Emergency (ER) | payer OTHER ==
[2022-07-30 11:29] VITALS: BP 158/87; PULSE 97; RESP 18; TEMP 98.7; BMI 41.3
[2022-07-30 12:06] LABS: HEMATOCRIT 24.5 % (32.4-45.2); HEMOGLOBIN 8.1 G/dL (10.7-15.3); MCH 26.2 pg (25.7-33.7); MCHC 33.1 g/dl (32.0-36.0); MEAN CELL VOLUME 79.2 fl (80-96); MEAN PLT VOLUME 8.7 fl (7.5-11.1); PLATELET COUNT 451.3 10^3/uL (134-434); RBC 3.09 10^6/uL (3.60-5.2); RDW 17.3 % (11.6-15.6); WHITE BLOOD COUNT 15.8 10^3/uL (4.0-10.8)
[2022-07-30 12:27] LABS: ALBUMIN 2.7 g/dl (3.4-5.0); BILIRUBIN,TOTAL 0.5 mg/dl (0.2-1); CALCIUM 8.7 mg/dl (8.5-10); TOT PROT 6.7 g/dl (6.4-8.2)
[2022-07-30 12:37] LABS: PLATELET ESTIMATE ADEQUATE
== END 2022-07-30 13:00 | disposition home or self-care (01) ==
LOC: FER 11:23
DX: I89.0 Lymphedema, not elsewhere classified (principal)
CPT/HCPCS: 36415; 80053; 85027; 99283-25

== ENCOUNTER 2023-12-16 20:10 | Emergency (ER) | payer OTHER ==
[2023-12-16 20:20] VITALS: TEMP 98.9; BMI 46.2
[2023-12-16] MEDS: CARVEDILOL 12.5 MG TABLET (FP) PO ONE (21:28)
[2023-12-16 22:48] VITALS: BP 172/83; PULSE 69; RESP 16
== END 2023-12-16 23:09 | disposition home or self-care (01) ==
LOC: FER 20:10
DX: I10 Essential (primary) hypertension (principal)
CPT/HCPCS: 82962; 99283-25

== ENCOUNTER 2024-04-17 09:10 | Day surgery (SDC) | payer OTHER ==
[2024-04-14 13:32] VITALS: BMI 48.2
[2024-04-17 09:43] LABS: BASO % 0.8 % (0-2.0); EOS % 1.2 % (0-4.5); HEMATOCRIT 29.3 % (32.4-45.2); HEMOGLOBIN 9.2 GM/dL (10.7-15.3); LYMPH % 29.3 % (8-40); MCH 25.1 pg (25.7-33.7); MCHC 31.2 g/dl (32.0-36.0); MEAN CELL VOLUME 80.5 fl (80-96); NEUT % 62.7 % (42.8-82.8); PLATELET COUNT 282 10^3/uL (134-434); RBC 3.64 M/mm3 (3.60-5.2); RDW 17.7 % (11.6-15.6); WHITE BLOOD COUNT 15.7 K/mm3 (4.0-10.0)
[2024-04-17 10:00] LABS: INR 0.99 (0.83-1.09); PROTHROMBIN TIME (PATIENT) 11.2 SEC (9.7-13.0)
[2024-04-17] MEDS ORDERED: FENTANYL CITRATE/PF 50 MCG/ML VIAL ONE ×2 (11:45→12:27)
[2024-04-17] MEDS: SODIUM CHLORIDE 500 ML IV SCH (11:45)
[2024-04-17] MEDS ORDERED: MIDAZOLAM HCL 2 MG/2 ML SINGLE DOSE VIAL ONE ×2 (11:45→12:27)
[2024-04-17] MEDS ORDERED: LABETALOL HCL 20 MG/4 ML VIAL ONE (11:51)
[2024-04-17] MEDS: LABETALOL HCL 20 MG/4 ML VIAL IVPUSH ONE (11:55)
[2024-04-17] MEDS: MIDAZOLAM HCL 2 MG/2 ML SINGLE DOSE VIAL IVPUSH ONE ×2 (12:10→12:22)
[2024-04-17] MEDS: FENTANYL CITRATE/PF 50 MCG/ML VIAL IVPUSH ONE ×2 (12:10→12:22)
[2024-04-17 13:33] VITALS: RESP 18
[2024-04-17 16:01] VITALS: PULSE 70
[2024-04-17 16:43] VITALS: BP 160/70; TEMP 97.7
== END 2024-04-17 17:10 | disposition home or self-care (01) ==
LOC: JRADIR 09:10
PROVIDERS: ATTEND Internal Medicine
PROC: 0TB03ZX Excision of Right Kidney, Percutaneous Approach, Diagnostic (ICD-10-PCS; principal; 2024-04-17)
DX: N26.9 Renal sclerosis, unspecified (principal)
CPT/HCPCS: 36415; 50200; 76775-TC; 76942-TC; 82962; 84703; 85025; 85610; 88300-TC; 88329